=== PATIENT | male | born 1975 | race Caucasian/White ===

== ENCOUNTER 2017-12-09 16:59 | Emergency (ER) | payer SELFPAY ==
[2017-12-09] MEDS: CEPHALEXIN 500 MG CAP PO (19:39)
[2017-12-09] MEDS: TRIMETHOPRIM/SULFAMETHOX (DS) TAB PO (19:39)
[2017-12-09] MEDS: DIPHTH/TET/ACEL PERTUSS (ADULT) 0.5 ML VIAL IM* (19:40)
== END 2017-12-09 21:06 | disposition home or self-care (01) ==
LOC: FTE 16:59
DX: S61.412A Laceration without foreign body of left hand, initial encounter (principal); W26.8XXA Contact with other sharp object(s), not elsewhere classified, initial encounter; Y92.89 Other specified places as the place of occurrence of the external cause; Z23 Encounter for immunization
CPT/HCPCS: 73130; 73130-LT; 90471; 90715; 99284-25